=== PATIENT | male | born 1990 | race Caucasian/White ===

== ENCOUNTER 2024-03-09 08:37 | Observation (INO) | payer OTHER ==
[~2024-03-09] VITALS: Ht 177.8 cm; Wt 68.0 kg
[~2024-03-09 08:37] MED LIST: AMOCLA875 PO; CEPH250SUA PO; CODACEE120 PO; HYDACE5 PO; HYDACE7.5L PO; IBUP800 PO; Norco 5-325 Ta1 EACH PO; RXCEPH250S PO; RXHYDACE PO; Zofran8 MG PO
[2024-03-09 09:35] VITALS: BP 143/81
[2024-03-09 10:25] LABS: BASOPHILS ABSOLUTE AUTO 0.03 K/mm3 (0.00-0.23); BASOPHILS PERCENT AUTO 1 % (0-2); EOSINOPHILS ABSOLUTE AUTO 0.02 K/mm3 (0.00-0.68); EOSINOPHILS PERCENT AUTO 0 % (0-6); Hematocrit 44.2 % (37.0-53.0); Hemoglobin 14.3 g/dL (13.5-17.5); IMMATURE GRAN ABSOLUTE AUTO 0.01 K/mm3 (0.00-0.10); IMMATURE GRAN PERCENT AUTO 0 % (0-1); LYMPHOCYTES PERCENT AUTO 19 % (21-46); MONOCYTES ABSOLUTE AUTO 0.54 K/mm3 (0.16-1.47); MONOCYTES PERCENT AUTO 9 % (4-13); Mean Corpuscular HGB 29.1 pg (26.0-34.0); Mean Corpuscular HGB Conc 32.4 g/dL (31.5-36.5); Mean Corpuscular Volume 90 fL (80-100); Mean Platelet Volume 8.9 fL (9.1-12.4); NEUTROPHILS ABSOLUTE AUTO 4.39 K/mm3 (1.96-9.15); NEUTROPHILS PERCENT AUTO 71 % (41-73); Platelet Count 275 K/mm3 (150-400); RDW Coefficient Variation 12.8 % (11.7-14.2); RDW Standard Deviation 42.1 fL (35.1-46.3); Red Blood Cell Count 4.91 M/mm3 (4.30-5.90); White Blood Cell Count 6.19 K/mm3 (4.00-11.30)
[2024-03-09 11:13] LABS: Alanine Aminotransfer (ALT/SGP 21 U/L (12-78); Albumin, Blood 4.2 g/dL (3.4-5.0); Albumin/Globulin Ratio 1.1 (0.8-1.8); Alk Phos 50 U/L (50-136); Anion Gap 7 mmol/L (3-11); Aspartate Aminotrans (AST/SGOT 18 U/L (12-37); Bilirubin, Total 0.7 mg/dL (0.1-1.0); Blood Urea Nitrogen 15 mg/dL (8-24); Bun/Creatinine Ratio 14.9 (12.0-20.0); CO2, Blood 28 mmol/L (21-32); Calcium, Blood 9.2 mg/dL (8.5-10.1); Chloride, Blood 110 mmol/L (98-108); Creatinine, Blood 1.01 mg/dL (0.60-1.20); Ethanol (Alcohol), Blood, Med <3 mg/dL; Globulin, Blood 3.7 g/dL (2.2-4.0); Glomerular Filtration Rate 99 (60-); Glucose, Blood 109 mg/dL (70-99); Potassium, Blood 4.5 mmol/L (3.5-5.5); Sodium, Blood 140 mmol/L (136-145); Total Protein, Blood 7.9 g/dL (6.4-8.2)
[2024-03-09 12:00] LABS: U Amphetamine Screen Not Detected; U Barbituate Screen Not Detected; U Benzodiazapine Screen Not Detected; U Buprenorphine Screen Not Detected; U Cannabinoids Screen DETECTED; U Cocaine Screen Not Detected; U Methadone Screen Not Detected; U Methamphetamine Screen Not Detected; U Opiates Screen Not Detected; U Oxycodone Screen Not Detected; U Phencyclidine Screen Not Detected
[2024-03-09 19:11] LABS: Influenza A, PCR NEGATIVE (NEGATIVE); Influenza B, PCR NEGATIVE (NEGATIVE); Resp Syncytial Virus, PCR NEGATIVE (NEGATIVE); SARS-Cov-2 (COVID-19) PCR, MMC NEGATIVE (NEGATIVE)
[2024-03-09] MEDS ORDERED: Mirtazapine 15 MG Tab PO SCH (21:00)
[2024-03-09] MEDS ORDERED: OLANZapine 10 MG Tab PO SCH (21:00)
== END 2024-03-10 03:15 ==
LOC: ER 08:37 → EOR 08:38
PROVIDERS: ADMIT Emergency Medicine
DX: F29 Unspecified psychosis not due to a substance or known physiological condition (principal); F43.10 Post-traumatic stress disorder, unspecified; F32.9 Major depressive disorder, single episode, unspecified; F17.210 Nicotine dependence, cigarettes, uncomplicated
CPT/HCPCS: 0241U; 80053; 85025; 99285; A9270; G0378

== ENCOUNTER 2024-04-29 08:47 | Emergency (ER) | payer OTHER ==
[~2024-04-29] VITALS: Ht 180.3 cm; Wt 74.8 kg
[2024-04-29] MEDS ORDERED: ARIPIPRAZOLE15 M3 PO (10:20)
[2024-04-29] MEDS ORDERED: REMERON30 M9 PO (10:20)
[2024-04-29 10:52] LABS: Source, Urine Voided
[2024-04-29 10:58] LABS: Appearance, Urine Hazy (Clear); Bilirubin, Urine Neg (Neg); Blood, Urine Neg (Neg); Color, Urine Yellow (P-Yellow); Glucose Qualitative, Urine Neg (Neg); Ketones, Urine Neg (Neg); Leukocyte Esterase, Urine Neg (Neg); Nitrite, Urine Neg (Neg); Protein, Urine Neg (Neg); Specific Gravity, Urine 1.015 (1.003-1.022); Urobilinogen, Urine NORM (Normal)
[2024-04-29 10:59] LABS: BASOPHILS ABSOLUTE AUTO 0.02 K/mm3 (0.00-0.23); BASOPHILS PERCENT AUTO 0 % (0-2); EOSINOPHILS ABSOLUTE AUTO 0.01 K/mm3 (0.00-0.68); EOSINOPHILS PERCENT AUTO 0 % (0-6); Hematocrit 43.9 % (37.0-53.0); Hemoglobin 14.9 g/dL (13.5-17.5); IMMATURE GRAN ABSOLUTE AUTO 0.01 K/mm3 (0.00-0.10); IMMATURE GRAN PERCENT AUTO 0 % (0-1); LYMPHOCYTES ABSOLUTE AUTO 1.22 K/mm3 (0.84-5.20); LYMPHOCYTES PERCENT AUTO 13 % (21-46); MONOCYTES ABSOLUTE AUTO 0.68 K/mm3 (0.16-1.47); MONOCYTES PERCENT AUTO 7 % (4-13); Mean Corpuscular HGB 29.7 pg (26.0-34.0); Mean Corpuscular HGB Conc 33.9 g/dL (31.5-36.5); Mean Corpuscular Volume 88 fL (80-100); Mean Platelet Volume 8.9 fL (9.1-12.4); NEUTROPHILS ABSOLUTE AUTO 7.47 K/mm3 (1.96-9.15); NEUTROPHILS PERCENT AUTO 79 % (41-73); Platelet Count 294 K/mm3 (150-400); RDW Coefficient Variation 13.1 % (11.7-14.2); RDW Standard Deviation 42.1 fL (35.1-46.3); Red Blood Cell Count 5.01 M/mm3 (4.30-5.90); White Blood Cell Count 9.41 K/mm3 (4.00-11.30)
[2024-04-29 11:09] LABS: U Amphetamine Screen Not Detected; U Barbituate Screen Not Detected; U Benzodiazapine Screen Not Detected; U Buprenorphine Screen Not Detected; U Cannabinoids Screen DETECTED; U Cocaine Screen Not Detected; U Methadone Screen Not Detected; U Methamphetamine Screen Not Detected; U Opiates Screen Not Detected; U Oxycodone Screen Not Detected; U Phencyclidine Screen Not Detected
[2024-04-29 11:19] LABS: Ethanol (Alcohol), Blood, Med <3 mg/dL; Salicylate <1.7 mg/dL (2.8-20.0)
[2024-04-29 11:19] LABS: Amorphous Heavy (0-Heavy); Bacteria Rare /hpf; Mucus Light (0-Heavy); Red Blood Cells, Urine Not Seen /hpf (0-2); Squamous Epithelial Cells Not Seen /hpf (Few); White Blood Cells, Urine Not Seen /hpf (0-5)
[2024-04-29 11:20] LABS: Acetaminophen, Random <2.0 ug/mL (10.0-30.0); Alanine Aminotransfer (ALT/SGP 16 U/L (12-78); Albumin, Blood 4.3 g/dL (3.4-5.0); Albumin/Globulin Ratio 1.1 (0.8-1.8); Alk Phos 51 U/L (50-136); Anion Gap 7 mmol/L (3-11); Aspartate Aminotrans (AST/SGOT 14 U/L (12-37); Bilirubin, Total 1.2 mg/dL (0.1-1.0); Blood Urea Nitrogen 21 mg/dL (8-24); Bun/Creatinine Ratio 17.9 (12.0-20.0); CO2, Blood 30 mmol/L (21-32); Calcium, Blood 9.3 mg/dL (8.5-10.1); Chloride, Blood 107 mmol/L (98-108); Creatinine, Blood 1.17 mg/dL (0.60-1.20); Globulin, Blood 3.9 g/dL (2.2-4.0); Glomerular Filtration Rate 83 (60-); Glucose, Blood 96 mg/dL (70-99); Potassium, Blood 4.1 mmol/L (3.5-5.5); Sodium, Blood 140 mmol/L (136-145); Total Protein, Blood 8.2 g/dL (6.4-8.2)
[2024-04-29 13:09] LABS: Influenza A, PCR NEGATIVE (NEGATIVE); Influenza B, PCR NEGATIVE (NEGATIVE); Resp Syncytial Virus, PCR NEGATIVE (NEGATIVE); SARS-Cov-2 (COVID-19) PCR, MMC NEGATIVE (NEGATIVE)
[2024-04-29 19:30] VITALS: BP 115/56
[2024-04-29] MEDS ORDERED: QUEtiapine Fumarate 300 MG Tab PO SCH ×2 (21:00)
== END 2024-04-29 12:30 ==
LOC: ER 08:47
PROVIDERS: Emergency Medicine
DX: R45.851 Suicidal ideations (principal); Z79.899 Other long term (current) drug therapy
CPT/HCPCS: 0241U; 80053; 81001; 84443; 85025; 86592; 93005; 93010; 99285-25; A9270; G0480

== ENCOUNTER 2024-04-29 11:59 | Inpatient (IN) | payer OTHER ==
[~2024-04-29] VITALS: Ht 180.3 cm; Wt 161.0 kg
[~2024-04-29 11:59] MED LIST changes: +ARIPIPRAZOLE15 M3 PO; +REMERON30 M9 PO
[2024-04-30] MEDS ORDERED: Ibuprofen 400 MG Tab PO PRN (13:55)
[2024-04-30] MEDS ORDERED: Acetaminophen 325 MG TABLET PO PRN (13:55)
[2024-04-30 14:17] VITALS: BP 104/57
[2024-04-30] MEDS ORDERED: Nicotine Polacrilex 2 MG Gum PO PRN (16:35)
[2024-04-30 20:51] VITALS: BP 118/84
[2024-04-30] MEDS ORDERED: QUEtiapine Fumarate 300 MG Tab PO SCH (21:00)
--- NOTE | 2024-05-01 01:01 | NUR ---
Patient resting comfortably. Denied current SI,HI,AH,VH. Pleasant and cooperative with care. Watched TV and had Snack just prior to HS. No complaints. Grateful for Seroquel to sleep.
--- NOTE | 2024-05-01 04:18 | NUR ---
Patient sleeping since approximately 2100. States no SI,Hi,AH or VH. No c/o pain or discomfort, Vital signs stable. Seven sleep hours so far overnight.
--- NOTE | 2024-05-01 08:16 | NUR ---
ASSUMED CARE OF PT, PT APPEARS TO BE SLEEPING, REPOSITIONS SELF OCCASIONALLY, MHA REPORT HE DECLINED BREAKFAST, WILL OFFER LATER WHEN PT AWAKENS
--- NOTE | 2024-05-01 13:31 | NUR ---
PT WOKE UP FOR LUNCH, PT REPORTS FEELING GROGGY BUT RESTED. PT ATE LUNCH, VISITED WITH STAFF AND ANOTHER PATIENT, AFTER LUNCH PT SHARES THAT LAST NIGHT HE DID HAVE A FEW MOMENTS OF SUICIDAL THINKING, "WHY DIDN'T I JUST DO IT," "IS THIS EVEN WORTH IT." PT STATES HE FEELS BETTER THIS MORNING, HE DENIES ANY SI. DISCUSSED VOCATIONAL GOALS WITH PT, HE VOLUNTEERS THAT HE HAS GOOD WORK ETHIC AND ENJOYS WORKING HARD, HE ENJOYS CONSTRUCTION TYPE OF WORK.
[2024-05-01 17:54] VITALS: BP 114/56
[2024-05-01 20:17] VITALS: BP 121/76
--- NOTE | 2024-05-01 21:39 | NUR ---
ASSUMED CARE. PATIENT IS COMPLIANT WITH ASSESSMENT, CARE AND MEDICATIONS. NO NOTED BEHAVIORS. ENCOURAGED CALORIE INTAKE HE HAS LOST 4LBS. CONTINUE TO OFFER SNACKS INBETWEEN MEALS.
--- NOTE | 2024-05-02 00:09 | NUR ---
Patient sleeping with no noted issues.
--- NOTE | 2024-05-02 03:51 | NUR ---
Patient continues to sleep well without noted issues.
[2024-05-02] MEDS ORDERED: buPROPion HCL 150 MG TAB.SR.12H PO SCH (09:00)
--- NOTE | 2024-05-02 09:02 | NUR ---
WOKE PT UP TO GIVE AM MEDICATIONS, PT STATES HE SLEPT VERY WELL, AGAIN OFFERED BREAKFAST TRAY, HE STATES HE DOESN'T WANT IT RIGHT NOW
[2024-05-02 16:32] VITALS: BP 135/81
--- NOTE | 2024-05-02 17:20 | NUR ---
PT ENGAGED WITH STAFF AND PATIENTS THIS AFTERNOON, PT DID HAVE A PHONE CALL TO HIS SPOUSE THAT WAS UPSETTING FOR HIM, IT SOUNDS IF SHE IS REQUESTING SEPARATION AND HE WILL NOT BE ALLOWED BACK AT HIS [employer]AND[employer] AT THIS TIME. PT STATES HE IS CONTENT TO SLEEP IN HIS CAR, HE WANTS TO GET OUT AND PURSUE GAINFUL EMPLOYMENT. DISCUSSED CARE HOME OR GROUP SETTING, HE STATES HE WOULD PREFER TO STAY IN HIS VEHICLE. DISCUSSED THE MEDICATION CHANGES THAT HAVE BEEN MADE AND HIS PREVIOUS EXPRESSED DESIRE TO FEEL "COLLEEN," AND "WELLNESS," HE IS AMENABLE TO STAYING AND AGREEABLE TO ENGAGING. HE HAS BEEN PRESENT IN THE [place], ENGAGED WITH STAFF AND OTHER PATIENTS, HAS BEEN WATCHING MOVIES, AROUND DINNER TIME HE DECLINED HIS TRAY AND TRIED TO CONTACT HIS SON, HE DIDN'T REACH HIM, QUITE SAD AFFECT AND WITHDRAWN SINCE.
--- NOTE | 2024-05-02 20:53 | NUR ---
PT IN SMILING MOOD AND CAN TALK ABOUT HIS GETTING A DIVORCE. HE TOOK HIS BED TIME MEDICATIONS. HAD NO QUESTIONS. DENIES SI OR HEARING VOICES
--- NOTE | 2024-05-03 01:45 | NUR ---
PT UP WATCHING TV. STATES HE IS UP FOR THE MORNING. WILL CONTINUE TO MONITOR HIM.
[2024-05-03 08:45] VITALS: BP 137/85
--- NOTE | 2024-05-03 08:58 | NUR ---
Pt states, "I am going through a ton of very tough life events." He is jobless Now his is him due to being a poor provider. He insists that he needs to live in his car. Pt wants to find social supports and backup plans with personal care adn peer support services. Pt also asks for information about parenting through a divorce.
[2024-05-03] MEDS ORDERED: buPROPion HCL 150 MG TAB.SR.12H PO SCH (09:00)
--- NOTE | 2024-05-04 05:15 | NUR ---
SHIFT SUMMARY SLEPT WELL THROUGH THE NIGHT. IS LOOKING FORWARD TO SEEING TODAY. HE WAS TO SEE SON ALSO BUT LET HIM KNOW THAT NO ONE UNDER THE AGE OF 18 CAN VISIT, HE GETS TEARY WHEN SPEAKING OF HIS SON. HE SAID THAT'LIFE IS A TRIP' IN REGARDS THAT HE FELT HE HASN'T BEEN A BETTER FATHER THAN HE THINKS HE SHOULD HAVE BEEN. DENIES SI, HI, A/V HALLUCINATIONS. HE STATED THAT HE CAN LIVE IN HIS CAR AND SHOWER AT THE GYM HE HAS DONE IT BEFORE. LET HIM KNOW TO TALK WITH SW TO SEE WHAT OTHER POSSIBILITIES ARE AVAILABLE.
[2024-05-04 07:49] VITALS: BP 114/68
--- NOTE | 2024-05-04 09:02 | NUR ---
PT DENIED SI, HI AND AVH. HE REPORTED "SOME PAIN...ALWAYS." HE DECLINED TO RATE HIS PAIN LEVEL. HE RATED HIS ANXIETY 5/10w. PT REPORTED "TODAY'S JUST ANOTHER DAY...DISAPPOINTED THAT I CAN'T VISIT WITH MY SON BECAUSE HE ISN'T 18 YET." PT IS CURRENTLY ATTENDING A GROUP.
--- NOTE | 2024-05-04 16:25 | NUR ---
WALDEMAR [facility] in order to find out pt PCP. Per insurance provider sales representative metals Tawanna, pt PCP is [facility] [employer] [facility] who can be reached at [phone]. WALDEMAR contacted insurance provider approximately [phone]. WALDEMAR contacted [facility] at [phone] and was on hold approximately 17 minutes. WALDEMAR left a voicemail to Orlando from [facility] for a callback regarding admission for a psychiatrist and therapy for pt.
--- NOTE | 2024-05-04 18:49 | NUR ---
PT IS WATCHING A MOVIE WITH STAFF, HE ASKED FOR AND WAS DOSED NICOTINE GUM AT 17:47. HE HAS REMAINED IN A GOOD MOOD AND HAS BEEN COOPERATIVE WITH CARE.
--- NOTE | 2024-05-04 20:29 | NUR ---
Pt calm, cooperative, medication compliant, medications well tolerated. Pt gathering information of resources for resolution and assistance upon discharge. Pt has legitimate concern of getting medications consistently. RN gave several ideas for getting post box and community resources from [employer] for leagl aid and other resources that may benefit him in getting some of his goals satisfied upon discharge. Pt has interview arranged. He has some resources to assist until he starts to get regular income. Pt seems relieved just knowing there are these posibilities. Pt denies SI, HI, A/V Hallucinations NO issues at this time.
--- NOTE | 2024-05-05 09:03 | NUR ---
From am SW contacted multiple mental health providers within pt network listed via [facility] provider website, due to pt advising that he did not want to attend [facility]. Barriers SW received when contacting over 12+ facilities consisted of leaving vm or locations not accepting patients at this time. SW reviewed barriers with pt. Pt decided that he is willing to obtain discharge services with [facility]. Pt has a mental health assessment scheduled with Margaret on 05/13/2024 at 1400pm.
--- NOTE | 2024-05-05 17:04 | NUR ---
PT AA&[id number]. HE IS PLEASANT AND COOPERATIVE WITH CARE. SPEECH AND EYE CONTACT APPROPRIATE. PT UP TO SHOWER AND PARTICIPATED IN GROUPS. PT DENIES SI/HI/AH/VH. PT EDUCATED ON DX OF BIPOLAR 2, HYPOMAINIA, AND DEPRESSION. PROVIDED AND REVIEWED EDUCATIONAL HANDOUTS WITH PT. HE EXPRESSED GRATITUDE AND WAS ABLE TO IDENTIFY SEVERAL S/S AND TRIGGERS THAT HE RELATED TO. PT REQUESTED ADDITIONAL COPIES FOR MOTHER AND . EDUCATION PROVIDED ON THE IMPORTANCE OF FOLLOW UP CARE AND MEDICATION MANAGEMENT. PT VERBALIZED UNDERSTANDING. EDUCATION WILL NEED REINFORCED. HE HAS NO QUESTIONS OR CONCERNS AT THIS TIME
[2024-05-05 19:43] VITALS: BP 144/91
--- NOTE | 2024-05-05 22:50 | NUR ---
PT HAS BEEN WATCHING TV IN GROUP ROOM WITH STAFF. HE HAS NOW GONE TO BED AND IS LYING QUIETLY WITH EYES CLOSED. CHEST RISE AND FALL X 3 OBSERVED. PT STATED "IM PRETTY NERVOUS ABOUT LEAVING". MHA AND THIS RN LISTENED TO PT TALK ABOUT HIS ANXIETY ABOUT NOT GETTING HIS MEDS AND BEING ABLE TO HAVE FOOD. HE DOESN'T HAVE ANY ANXIETY MEDS AND I OFFERED TO CALL THE DR TO GET SOMETHING AND THE PT SAID HE DOESN'T FEEL LIKE HE NEEDS ANYTHING. DENIES SI, HI, AVH, OR TH. MOOD IS GOOD, BUT WITH SOME ANXIETY. WILL MONITOR FOR ANY CHANGES.
--- NOTE | 2024-05-06 03:51 | NUR ---
SHIFT SUMMARY PT A&OX4, STATES HE IS IN A GOOD MOOD, BUT IS VERY NERVOUS CONCERNING HIS DISCHARGE HE WANTS TO KNOW THAT HIS MEDICATIONS WILL BE READY AT THE PHARMACY. PT SWALLOWED HIS MEDICATION WITHOUT DIFFICULTY. HE HAS BEEN IN BED SLEEPING SINCE ABOUT 2200 WITH 15 MINUTE CHECKS. PT DENIES SI, HI, A,V,T H. WILL CONT WITH 15 MIN CHECKS AND MONITORING. WILL ADDRESS CHANGES THEY COME UP.
[2024-05-06] MEDS ORDERED: Budeprion Xl300 MG PO (09:44)
[2024-05-06] MEDS ORDERED: QUET300 PO (09:45)
== END 2024-05-06 10:00 | disposition home or self-care (01) | DRG 885 ==
LOC: BHU 11:59
PROVIDERS: ADMIT Student in an Organized Health Care Education/Training Program
DX: F31.63 Bipolar disorder, current episode mixed, severe, without psychotic features (principal); F31.81 Bipolar II disorder; F17.210 Nicotine dependence, cigarettes, uncomplicated; F12.90 Cannabis use, unspecified, uncomplicated; Z56.0 Unemployment, unspecified
CPT/HCPCS: A9270